=== PATIENT | male | born 1980 | race Caucasian/White ===

== ENCOUNTER 2019-08-25 16:14 | Outpatient (CLI) | payer OTHER, SELFPAY ==
--- NOTE | ~2019-08-25 | XR_ITS ---
EXAMINATION: XR ankle LT min 3V DATE: 08/25/2019 16:35 INDICATION: Lateral left ankle pain and swelling post fall TECHNIQUE: Anteroposterior, oblique, mortise, and lateral views of the left ankle were obtained. COMPARISON: None. FINDINGS: Old healed fractures at the left distal tibial and fibular diaphyses. Normal alignment at the left an kle. No acute fracture. Joint spaces are normal. Mild soft tissue swelling about the lateral malleolu s. No definitive ankle joint effusion. IMPRESSION: 1. No acute osseous abnormality. Reviewed, dictated and finalized at location A.
== END 2019-08-25 16:15 | disposition home or self-care (01) ==
PROVIDERS: PCP Family Medicine Adolescent Medicine; Visit Provider Family Medicine Adolescent Medicine
DX: M25.572 Pain in left ankle and joints of left foot (principal)
CPT/HCPCS: 73610

== ENCOUNTER 2024-11-19 15:12 | Outpatient (CLI) | payer OTHER, SELFPAY ==
--- NOTE | ~2024-11-19 | US_ITS ---
Ultrasound soft tissue neck Indication: Palpable abnormality Technique: Multiple jane scale and color Doppler sonographic images obtained Findings: Correlating with the palpable area there is a large complex focus measuring 2.3 x 1 x 0.9 cm without abnormal flow. A discrete fatty hilum is not identified. IMPRESSION: Nonspecific soft tissue lesion. Findings may represent an atypical enlarged lymph node however other etiologies are not excluded. Contrast-enhanced CT or MRI is recommended Reviewed, dictated and finalized at location A. IMPRESSION: Nonspecific soft tissue lesion. Findings may represent an atypical enlarged lymph node however other etiologies are not excluded. Contrast-enhance d CT or MRI is recommended
== END 2024-11-19 15:13 | disposition home or self-care (01) ==
PROVIDERS: PCP Nurse Practitioner Family; Visit Provider Nurse Practitioner Family
DX: R22.1 Localized swelling, mass and lump, neck (principal); Z13.220 Encounter for screening for lipoid disorders
CPT/HCPCS: 76536

== ENCOUNTER 2024-12-08 08:26 | Outpatient (CLI) | payer OTHER, SELFPAY ==
--- NOTE | ~2024-12-08 | CT_ITS ---
EXAMINATION: CT soft tissue neck w con DATE: 12/08/2024 08:49 INDICATION: Localized swelling, mass and lump, neck. TECHNIQUE: Computed tomography (CT) of the neck was performed with 75 mL Omnipaque-350 intravenous contrast. Automated exposure control and iterative reconstruction technique were employed. The dose-length product was 461.51 mGy-cm. COMPARISON: Ultrasound 11/19/2024 FINDINGS: There is a skin marker at left neck. There are no pathologically enlarged lymph nodes. The cervical carotid arteries are normal. The major salivary glands are normal. There is mild cervical spondylosis. There are mucous retention cysts in the maxillary sinuses. The mastoid air cells are normal. IMPRESSION: 1. No abnormal neck mass or lymphadenopathy. Reviewed, dictated and finalized at location E.
== END 2024-12-08 08:27 | disposition home or self-care (01) ==
LOC: MICIMG 08:27
PROVIDERS: PCP Nurse Practitioner Family; Visit Provider Nurse Practitioner Family
DX: R22.1 Localized swelling, mass and lump, neck (principal)
CPT/HCPCS: 70491; Q9967